=== PATIENT | female | born 1965 | race Caucasian/White ===

== ENCOUNTER 2016-11-01 06:26 | Emergency (ER) | payer OTHER ==
--- NOTE | 2016-11-01 10:44 | ED ORDER SUMMARY ---
..... Patient: MELODIE WYATT OrderSheet [facility] VisitID: [id number] [place] [address] 51y, F Registration Date/Time: 11/01/2016 ORDER SHEET Weight: 68.0 kg (stated) Allergies: morphine, Sertraline GENERAL ORDERS: CBC w Diff Urgent (07:07 11/01/2016 DDavis R.N. verbal order read back to Suha OSUNA) (Ack 7:10 CHagerty ER Baccarat Manager) (7:24 DMaziarka R.N.) CMP Urgent (07:07 11/01/2016 DDavis R.N. verbal order read back to Suha OSUNA) (Ack 7:10 CHagerty ER Baccarat Manager) (7:24 DMaziarka R.N.) UA-Culture if indicated Urgent (07:07 11/01/2016 DDavis R.N. verbal order read back to Suha OSUNA) (Ack 7:10 CHag[place] ER Baccarat Manager) (8:24 TBergley) Urine Drug Screen Urgent (07:07 11/01/2016 DDavis R.N. verbal order read back to Suha OSUNA) (Ack 7:10 CH[place] ER Baccarat Manager) (8:24 TBergley) Amylase Urgent (07:07 11/01/2016 DDavis R.N. verbal order read back to Suha OSUNA) (Ack 7:10 CHagerty ER Baccarat Manager) (7:24 DMaziarka R.N.) Lipase Urgent (07:07 11/01/2016 DDavis R.N. verbal order read back to Suha OSUNA) (Ack 7:10 CHagerty ER Baccarat Manager) (7:24 DMaziarka R.N.) Form Stripper (Continuous) (08:39 11/01/2016 Suha OSUNA) (Ack 8:56 LNations ER Tech1) (8:57 DMaziarka R.N.) CPK Urgent (08:39 11/01/2016 Suha OSUNA) (Ack 8:56 LNations ER Tech1) (8:57 DMaziarka R.N.) Troponin-I Urgent (08:39 11/01/2016 Suha OSUNA) (Ack 8:56 LNations ER Tech1) (8:57 DMaziarka R.N.) Pulse oximeter (08:39 11/01/2016 Suha OSUNA) (Ack 8:56 LNations ER Tech1) (8:57 DMaziarka R.N.) EKG - ER Stat (08:39 11/01/2016 Suha OSUNA) (Ack 8:56 LNations ER Tech1) (8:57 DMaziarka R.N.) Lactate, Serum Urgent (08:40 11/01/2016 Suha OSUNA) (Ack 8:56 LNations ER Tech1) (8:57 DMaziarka R.N.) US Abdomen Limited (No) Urgent (08:58 11/01/2016 Suha OSUNA) (Ack 9:01 LNations ER Tech1) (9:12 LNations ER Tech1) MEDICATION ORDERS: IV FLUIDS: IV Saline Lock (07:07 11/01/2016 Eusebio R.NKerry verbal order read back to Suha OSUNA) (7:27 DMaziarka R.N.) IV NS : initial bolus 500 mL (1000 mL/hr), then 125 mL/hr for 4h (NOW); Urgent (07:38 11/01/2016 Suha OSUNA) (Ack 7:45 DMaziarka R.N.) (7:48 DMaziarka R.N.) ORDER SHEET NOTES: [Electronically signed by Margarette Torres R.N. (11:22 11/01/2016)] [Electronically signed by Melodie Canas MD (21:21 11/08/2016)] [Electronically locked/signed by Margarette Torres R.N. (11:22 11/01/2016)]
--- NOTE | 2016-11-01 10:44 | ED CLINICAL REPORT ---
Clinical Report - Physicians/Mid Levels [facility] [address] [place] [address] 11/01/2016 6:27 Patient: MELODIE WYATT Time Seen: 06:42. Arrived- By private vehicle. Historian- patient. HISTORY OF PRESENT ILLNESS Chief Complaint: "Pain". At its maximum, severity described as moderate. When seen in the E.D., it was gone. Modifying factors. Not worsened by anything. Not relieved by anything. This started today and is now gone. It was abrupt in onset. No current or associated symptoms. (patient reports that she injected heroin into her arm. She subsequently developed pain "all over my body." Pt had also recently done methamphetamines. She says that the sx are now resolved.). Similar symptoms previously: None. Recent medical care: Not recently seen/assessed. REVIEW OF SYSTEMS No chills, fever, decreased vision, nasal congestion or runny nose. No calf pain, chest pain, cough, difficulty breathing or pedal edema. No palpitations, abdominal pain, constipation, diarrhea or nausea. No vomiting, urinary problems, laceration, skin rash or alteration in mental status. No dizziness, fainting episodes, headache, weakness or difficulty with urination. The patient has no pain on weight bearing. No difficulty walking. All systems otherwise negative, except as recorded above. PAST HISTORY Problems: Substance Abuse. Syncope. Heart Disease. Narcotic Withdrawal. Diarrhea. Vomiting. Back Pain. Breast Cancer. Abdominal Pain. Lifestyle / Substance Problems. Bronchitis. Dental Caries. Hypertension. Rectal problem for several years. Dental Pain. Cardiomegaly. Congestive Heart Failure. Additional Surgeries: Ankle surgery. Breast Biopsy. Colonoscopy. Rectum surgery. Stimulator in back. Tubal Ligation. Medications: Methadone HCl Oral. Allergies: morphine. Sertraline. SOCIAL HISTORY Current every day heavy tobacco smoker (cigarette)- less than 1 pack per day. History of drug use: heroin, methamphetamines. Recently used drugs just prior to arrival. No alcohol use. FAMILY HISTORY Denies family medical history. ADDITIONAL NOTES The nursing notes have been reviewed. PHYSICAL EXAM Vital Signs: 11/01/2016 06:30 BP: 106/62. HR: 97. RR: 28. O2 saturation: 97%. Temp: 99.5 F. Pain level now: 02/11. Have been reviewed. Appearance: Alert. Eyes: Pupils equal, round and reactive to light. ENT: Pharynx normal. Neck: Normal inspection. Neck supple. CVS: Normal heart rate and rhythm. Heart sounds normal. No extra heart sounds. Respiratory: No respiratory distress. 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 The tenderness reproduces the patient's subjective complaint. Breath sounds normal. Abdomen: No visible injury. Soft. Mild tenderness in the upper abdomen. Bowel sounds normal. No organomegaly. No mass. Back: Normal inspection. Skin: Skin warm and dry. Extremities: Extremities exhibit normal ROM. No calf tenderness. No lower extremity edema. Neuro: (Grossly oriented and intact.). LABS, X-RAYS, AND EKG EKG: EKG time: (0858). No acute ischemia. Rate: 114. Tachycardia. Normal P waves. Normal JV. Normal QRS complex. Left axis deviation. Normal QT and QTc. Non-specific ST segment / T wave abnormalities. Changes present when compared to prior EKG. (24 Apr 2015). The study has been interpreted contemporaneously by me. The study has been independently viewed by me. The EKG appears to be a good tracing. I agree with and confirm the computer reading of the EKG. Abdominal Sonogram: Normal study. The gallbladder is normal. Common duct is normal. Normal liver. Pancreas normal. Aorta normal. Kidney normal. Spleen normal. No free fluid. Study included the upper abdomen. Prior studies were not available for comparison. The study was interpreted by the radiologist and discussed with the radiologist. Laboratory Tests: UA-Culture if indicated: (JEFFERSON: 11/01/2016 08:23) ( MsgRcvd 11/01/2016 08:53) Final results Test Result Flag Units (Reference) URINE COLOR YELLOW URINE APPEARANCE SL CLOUDY URINE GLUCOSE NEGATIVE (NEGATIVE) URINE BILIRUBIN ICTOTEST POSITIVE (NEGATIVE) URINE KETONE NEGATIVE (NEGATIVE) URINE SPECIFIC GRAVITY 1.010 (1.010-1.030) URINE PH 7.0 (5.0-8.0) URINE PROTEIN 1+ (NEGATIVE) URINE UROBILINOGEN >=8.0 EU/dL (0.2-1.0) URINE NITRITE NEGATIVE (NEGATIVE) URINE BLOOD 3+ (NEGATIVE) URINE LEUK ESTERASE NEGATIVE (NEGATIVE) URINE RBC 10-25 rbc/hpf (0-1) URINE WBC 3-5 wbc/hpf (0-1) URINE EPITHELIAL CELLS 3-5 EPI/hpf (0-5) URINE BACTERIA FEW (1+) (NONE SEEN) URINE COMMENT CULT NOT INDICATED URINE CULTURES ARE SET-UP BASED ON THE FOLLOWING CRITERIA:POSITIVE NITRITEPOSITIVE LEUKOCYTE ESTERASEGREATER THAN 10 WHITE BLOOD CELLSMODERATE (2+) OR GREATER BACTERIA CBC w Diff: (JEFFERSON: 11/01/2016 07:25) ( MsgRcvd 11/01/2016 07:51) Final results Test Result Flag Units (Reference) WHITE BLOOD COUNT 3.1 L K/uL (4.5-11.5) RED BLOOD COUNT 5.20 M/uL (4.00-5.20) HEMOGLOBIN 15.6 gm/dL (12.0-16.0) HEMATOCRIT 45.9 % (36.0-46.0) MEAN CELL VOLUME 88 fL (80-100) MEAN CORPUSCULAR HGB 30 pg (26-34) MEAN CORPUSCULAR HGB CONC 34 g/dL (31-37) RED CELL DISTRIBUTION WIDTH 13.3 % (11.6-14.8) PLATELET COUNT 127 L K/uL (150-400) NEUTROPHIL % 92.2 H % (50-75) LYMPH % 7.0 L % (25-40) MONO % 0.4 L % (3-14) EOSINOPHIL % 0.3 % (0-4) BASOPHIL % 0.1 % (0-2) Urine Drug Screen: (JEFFERSON: 11/01/2016 08:23) ( MsgRcvd 11/01/2016 08:52) Final results Test Result Flag Units (Reference) AMPHETAMINE/METHAMPHETAMINE POSITIVE H (NEGATIVE) BARBITURATE NEGATIVE (NEGATIVE) BENZODIAZEPINE NEGATIVE (NEGATIVE) CANNABINOID NEGATIVE (NEGATIVE) COCAINE NEGATIVE (NEGATIVE) ECSTASY NEGATIVE (NEGATIVE) METHADONE POSITIVE H (NEGATIVE) OPIATE POSITIVE H (NEGATIVE) The urine drug screen is a qualitative screening test fordrug overdose and abuse. All screen results should beconsidered as presumptive.Drugs screened for are as follows:BenzodiazepinesCocaineAmphetamines/MetamphetaminesTHC (Tetrahydrocannabinol)OpiatesBarbituratesEcstasyMethadonePositive results are unconfirmed. For confirmation, notifythe lab for the specimen to be sent to the reference lab.All confirmations must be performed by a differentmethodology.The ingestion of natural herbal and plant productscontaining Ephedra/Ephedra metabolites can produce in urineone or more substances capable of cross reacting withamphetamine/methamphetamine immunoassays. These testsprovide a preliminary result only. A more specificalternative chemical method must be used to obtain aconfirmed analytical result. CMP: (JEFFERSON: 11/01/2016 07:25) ( MsgRcvd 11/01/2016 08:45) IP Test Result Flag Units (Reference) GLUCOSE 110 mg/dL (70-110) BUN 13 mg/dL (7-18) CREATININE 0.9 mg/dL (0.6-1.3) Estimated GFR >60 mL/min Estimated GFR- >60 mL/min Note: Persistent reduction over 3 months in eGFR<60 mL/min/1.73 m2 defines CKD. Patients with eGFR values>=60 mL/min/1.73 m2 may also have CKD if evidence ofpersistent proteinuria. Additional information may be foundat www.kidney.org. SODIUM 129 L mmol/L (136-145) POTASSIUM 3.0 L mmol/L (3.5-5.1) CHLORIDE 103 mmol/L (98-107) CARBON DIOXIDE 25 mmol/L (21-32) CALCIUM 8.2 L mg/dL (8.5-10.1) TOTAL PROTEIN 6.2 L g/dL (6.4-8.2) ALBUMIN 2.8 L g/dL (3.3-5.0) BILIRUBIN, TOTAL 2.4 H mg/dL (0.0-1.0) LIPASE 45 L U/L (73-393) AMYLASE 22 L U/L (25-115) . Pulse Oximetry: 11/01/2016 06:30 O2 saturation: 97%. (FIO2 - room air). Interpretation: normal. PROGRESS AND PROCEDURES Course of Care: 09:16 11/01/16. I discussed the case with Dr. Canas at change of shift. We reviewed the patient's history and physical examination findings and the results of her labs thus far. Dr. Canas will follow-up on the results of her pending labs as well as the results of her ultrasound and she will arrange an appropriate disposition for the patient. - MW Pt was signed out to me at change of shift, pending work-up and observation. Pt was asymptomatic on arrival, as well as throughout her stay in the ED. She had no further complaints. Work-up was negative. No emergent condition identified. Patient/family counseled. Old medical records ordered. Disposition: Discharged. Condition: stable and improved. CLINICAL IMPRESSION Substance abuse problems: abuse of opiates and methamphetamine. Substance dependence problems: dependence on opiates and methamphetamine. INSTRUCTIONS (Your labs showed that your liver has endured some stress. However most of this is likely chronic. No infection or other serious, acute problems has been found today. Please get help with your drug use.). Warnings: GENERAL WARNINGS: Return or contact your physician immediately if your condition worsens or changes unexpectedly, if not improving as expected, or if other problems arise. Your Current Medications: CONTINUE TAKING THE FOLLOWING MEDICATIONS: Methadone HCl Oral. Understanding of the discharge instructions verbalized by patient. Follow-up with: [facility], , , [address], [facility], [address] Follow up. Call for the next available appointment. Reason for referral: Establish care. (Electronically signed by Melodie Canas MD 11/08/2016 21:21)
--- NOTE | 2016-11-01 10:44 | ED ORDER SUMMARY ---
..... Patient: MELODIE WYATT OrderSheet [facility] VisitID: [id number] [place] [address] 51y, F Registration Date/Time: 11/01/2016 ORDER SHEET Weight: 68.0 kg (stated) Allergies: morphine, Sertraline GENERAL ORDERS: CBC w Diff Urgent (07:07 11/01/2016 DDavis R.N. verbal order read back to Suha OSUNA) (Ack 7:10 CHagerty ER Drug Enforcement Administration Agent) (7:24 DMaziarka R.N.) CMP Urgent (07:07 11/01/2016 DDavis R.N. verbal order read back to Suha OSUNA) (Ack 7:10 CHagerty ER Drug Enforcement Administration Agent) (7:24 DMaziarka R.N.) UA-Culture if indicated Urgent (07:07 11/01/2016 DDavis R.N. verbal order read back to Suha OSUNA) (Ack 7:10 CH[place] ER Drug Enforcement Administration Agent) (8:24 TBergley) Urine Drug Screen Urgent (07:07 11/01/2016 DDavis R.N. verbal order read back to Suha OSUNA) (Ack 7:10 CH[place] ER Drug Enforcement Administration Agent) (8:24 TBergley) Amylase Urgent (07:07 11/01/2016 DDavis R.N. verbal order read back to Suha OSUNA) (Ack 7:10 CHagerty ER Drug Enforcement Administration Agent) (7:24 DMaziarka R.N.) Lipase Urgent (07:07 11/01/2016 DDavis R.N. verbal order read back to Suha OSUNA) (Ack 7:10 CHagerty ER Drug Enforcement Administration Agent) (7:24 DMaziarka R.N.) Heel Cementer Machine (Continuous) (08:39 11/01/2016 Suha OSUNA) (Ack 8:56 LNations ER Tech1) (8:57 DMaziarka R.N.) CPK Urgent (08:39 11/01/2016 Suha OSUNA) (Ack 8:56 LNations ER Tech1) (8:57 DMaziarka R.N.) Troponin-I Urgent (08:39 11/01/2016 Suha OSUNA) (Ack 8:56 LNations ER Tech1) (8:57 DMaziarka R.N.) Pulse oximeter (08:39 11/01/2016 Suha OSUNA) (Ack 8:56 LNations ER Tech1) (8:57 DMaziarka R.N.) EKG - ER Stat (08:39 11/01/2016 Suha OSUNA) (Ack 8:56 LNations ER Tech1) (8:57 DMaziarka R.N.) Lactate, Serum Urgent (08:40 11/01/2016 Suha OSUNA) (Ack 8:56 LNations ER Tech1) (8:57 DMaziarka R.N.) US Abdomen Limited (No) Urgent (08:58 11/01/2016 Suha OSUNA) (Ack 9:01 LNations ER Tech1) (9:12 LNations ER Tech1) MEDICATION ORDERS: IV FLUIDS: IV Saline Lock (07:07 11/01/2016 Eusebio R.NKerry verbal order read back to Suha OSUNA) (7:27 DMaziarka R.N.) IV NS : initial bolus 500 mL (1000 mL/hr), then 125 mL/hr for 4h (NOW); Urgent (07:38 11/01/2016 Suha OSUNA) (Ack 7:45 DMaziarka R.N.) (7:48 DMaziarka R.N.) ORDER SHEET NOTES: [Electronically signed by Margarette Torres R.N. (11:22 11/01/2016)] [Electronically signed by Melodie Canas MD (21:21 11/08/2016)] [Electronically locked/signed by Margarette Torres R.N. (11:22 11/01/2016)]
--- NOTE | 2016-11-01 10:44 | ED NURSING NOTES ---
Clinical Report - Nurses [facility] [address] [place] [address] 11/01/2016 6:27 Patient: MIKE WYATT TRIAGE Triage time 06:31. Acuity: LEVEL 3. Chief Complaint: ("pain all over"). MICHELLE COMA SCORE: [place] Coma Scale: 15- eyes open spontaneously (4); best verbal response- oriented x 4 (5); best motor response- obeys commands (6). --06:37 Alejandro Auguste R.N. 06:30 11/01/16. BP: 106/62 taken on the left arm, while lying. HR: 97. RR: 28 (rapid and shallow). O2 saturation: 97% on room air. Temp: 99.5 F (oral). Pain level now: 02/11. --06:37 Alejandro Auguste R.N. Acuity: LEVEL 3. --06:40 Alejandro Auguste R.N. Weight: 68 kg stated. Height/Length: 63 inches Per Patient. BMI: 26.6. --06:29 Alejandro Auguste R.N. Medications Methadone HCl Oral. --06:36 Alejandro Auguste R.N. Allergies morphine. Sertraline. --06:35 Alejandro Auguste R.N. History Arrived by EMS, and unaccompanied. This started just prior to arrival. ( Patient states that she" shot up" "heroine and meth" in her right arm "30 minutes ago" and started having abdominal cramps and "pain all over"). SOCIAL HX: Heavy tobacco smoker (cigarette)- less than 1 pack per day. History of heavy IV drug use: heroin, methamphetamines, marijuana. No alcohol use. ( pt states that she goes to a methadone clinic). --06:37 Alejandro Auguste R.N. PROBLEMS: Substance Abuse. Heart Disease. Narcotic Withdrawal. Back Pain. Breast Cancer. Lifestyle / Substance Problems. Dental Caries. Hypertension. Rectal problem for several years. Cardiomegaly. Congestive Heart Failure. --06:35 Alejandro Auguste R.N. ADDITIONAL SURGERIES: Ankle surgery. Breast Biopsy. Colonoscopy. Rectum surgery. Stimulator in back. Tubal Ligation. --06:36 Alejandro Auguste R.N. Interventions ID band on patient. To treatment room. --06:37 Alejandro Auguste R.N. PHYSICAL ASSESSMENT To room via stretcher. ( Patient appears sleepy, answers questions appropriately and opens eyes spontaneously.). GENERAL / NEURO / PSYCH: Alert. Oriented X 4. Does not appear in pain or anxious. HEENT: Mucous membranes are pink. RESPIRATORY: No respiratory distress. Respirations not labored. Breath sounds within normal limits. CVS: Cardiac rhythm: sinus tachycardia. No abnormal heart sounds. ( rate=96 to 105). Capillary refill less than 2 seconds. GI / : Normal bowel sounds. Abdominal tenderness diffusely. SKIN: Skin is warm and dry. Normal skin turgor. ( track bruno on arms). --06:40 Alejandro Auguste R.N. NURSING PROGRESS NOTES utilization management rn, pulse oximeter and NIBP monitor placed on patient. Patient gowned. Two patient identifiers checked. Call light placed in reach. Side rails up x 2. Brakes of bed on. Patient ready for evaluation- chart flagged and ED physician notified. Patient waiting for evaluation. --06:40 Alejandro Auguste R.N. ( Dr Reyes notified of patient and orders received. Report given to Margarette Álvarez RN). --07:12 Alejandro Auguste R.N. 07:27 11/01/2016 Site #1 started via IV in the left hand with an 18g angiocath, with aseptic technique and good blood return; one attempt. Blood drawn: rainbow set. Labeled in the presence of the patient and sent to the lab. Saline lock flushed with 10 mL saline. --07:27 Margarette Torres R.N. 07:27 11/01/16. BP: 110/67. HR: 127. RR: 30. O2 saturation: 98%. --07:28 Margarette Torres R.N. Blood samples drawn. Call light placed in reach. Side rails up x 2. --07:28 Margarette Torres R.N. 07:48 11/01/2016 Started bag #1 1000 mL IV Fluids IV NS (Saline); bolus of 500 mL over 30 minute(s) then at 125 mL/hr over 4 hour(s) via site #1 via IV pump. Allergies verified and confirmed 5 rights. IV patency established. IV site checked: no pain, redness, or swelling. IV flushed thoroughly pre- and post-medication administration. --07:48 Margarette Torres R.N. 08:58 11/01/16. EKG time: (0858 AM). EKG was ordered, performed by a tech and shown to the ED physician. --08:58 Lucinda Burns 08:45. Team Primary Care Physician provided for the general exam by the physician. --09:12 Jaycee Armstrong R.N. 09:45 11/01/16. BP: 97/71. HR: 110. RR: 28. O2 saturation: 98%. Pain level now 0/10. --09:45 Margarette Torres R.N. Patient transported to radiology. --09:46 Margarette Torres R.N. The patient is sleeping. Overall patient status is improved. RESPIRATORY: No respiratory distress. --10:41 Margarette Torres R.N. 11:11 11/01/2016 Site #1 removed upon discharge. Bandaid applied. --11:11 Margarette Torres R.N. DISPOSITION / DISCHARGE Condition at departure: improved. No learning barriers present. Patient verbalized understanding. Written instructions provided in Divehi. The patient was discharged home and accompanied by family. She left the Emergency Department ambulatory and via private vehicle. Spouse driving. ( Pt AOx3 NAD up ambulating to the BR with asst ant well not light headed. B/P 89/67 MD aware pt is tolerating well after having taken Heroin). --11:11 Margarette Torres R.N. 10:58 11/01/16. BP: 89/68. HR: 86. RR: 20. O2 saturation: 100%. Pain level now 0/10. --11:11 Margarette Torres R.N. Departure time: 11:11. --11:12 Margarette Torres R.N. Locked/Released at 11/01/2016 11:22 by Margarette Torres R.N.
--- NOTE | 2016-11-01 10:59 | DIAGNOSTIC IMAGING REPORT ---
PROCEDURE: US ABDOMEN ULTRASOUND-LIMITED INDICATION: PAIN TECHNIQUE: Carmona scale and color Doppler sonographic images of the abdomen were obtained without comparison. COMPARISON: Abdominal ultra sound 04/06/2014 FINDINGS: The liver is mildly enlarged and demonstrates increased echogenicity. No mass or intrahepatic biliary dilatation. The gallbladder is contracted. The wall is normal thickness measuring 3.7 mm No pericholecystic fluid or Park sign. The extrahepatic common duct is normal measuring 3.1 mm The visualized pancreas is echogenic and mildly enlarged. The abdominal aorta is normal in its course and caliber. The retrohepatic inferior vena cava is patent. There is appropriate hepatopetal flow in the portal vein. The right kidney measures 10.4 cm in length. There is no perihepatic or perisplenic ascites. IMPRESSION: 1. Enlarged fatty liver. 2. Mildly enlarged echogenic pancreas.
--- NOTE | 2016-11-08 21:21 | ED MAR SUMMARY ---
..... Medication Administration Record [facility] [address] [place] [address] Patient: MIKE WYATT Visit ID: [id number] 51y, F Weight: 68.0 kg Height/Length: 63 in BMI: 26.6 ALLERGIES: morphine, Sertraline Start 07:48 11/01/2016 Margarette Torres RAnnetta Medication Administered: IV NS (SALINE), Dose: IV Fluids over 4 hour(s), Rate: 125 mL/hr, Bolus: 500 mL over 30 minute(s), Dispensed: 1000 mL bag, Site: #1 left hand. Medication Ordered: IV NS : initial bolus 500 mL (1000 mL/hr), then 125 mL/hr for 4h (NOW); Urgent.
--- NOTE | 2016-11-08 21:21 | ED MED RECONCILIATION SUMMARY ---
Patient: MIKE WYATT Medication Reconciliation Report [facility] VisitID: [id number] [address] [place] [address] 51y, F Registration Date/Time: 11/01/2016 Weight: 68.0 kg Height/Length: 63 in. BMI: 26.6 ALLERGIES: morphine, Sertraline The patient's Home Medications are listed below: CONTINUE TAKING THE FOLLOWING MEDICATIONS: Methadone HCl Oral The source(s) of the original Home Medication information: Not obtained. The following Medications were given to the patient in the Emergency Department: IV NS IV Fluids bolus 500 mL over 30 minute(s), then 125 mL/hr, administered: 11/01/2016 7:48:00 AM The following Medications were prescribed to the patient: None.
--- NOTE | 2016-11-08 21:21 | ED MED RECONCILIATION SUMMARY ---
Patient: MIKE WYATT Medication Reconciliation Report [facility] VisitID: [id number] [address] [place] [address] 51y, F Registration Date/Time: 11/01/2016 Weight: 68.0 kg Height/Length: 63 in. BMI: 26.6 ALLERGIES: morphine, Sertraline The patient's Home Medications are listed below: CONTINUE TAKING THE FOLLOWING MEDICATIONS: Methadone HCl Oral The source(s) of the original Home Medication information: Not obtained. The following Medications were given to the patient in the Emergency Department: IV NS IV Fluids bolus 500 mL over 30 minute(s), then 125 mL/hr, administered: 11/01/2016 7:48:00 AM The following Medications were prescribed to the patient: None.
--- NOTE | 2016-11-08 21:21 | ED DISCHARGE INSTRUCTIONS ---
Patient: MELODIE WYATT Harini General Instructions [facility] VisitID: [id number] [address], [place] [address] 51y, F Registration Date/Time: 11/01/2016 Substance abuse problems: abuse of opiates and methamphetamine. Substance dependence problems: dependence on opiates and methamphetamine. INSTRUCTIONS (Your labs showed that your liver has endured some stress. However most of this is likely chronic. No infection or other serious, acute problems has been found today. Please get help with your drug use.). Warnings: GENERAL WARNINGS: Return or contact your physician immediately if your condition worsens or changes unexpectedly, if not improving as expected, or if other problems arise. Your Current Medications: CONTINUE TAKING THE FOLLOWING MEDICATIONS: Methadone HCl Oral. Understanding of the discharge instructions verbalized by patient. Follow-up with: [facility], , , [address], , [place], [address] Follow up. Call for the next available appointment. Reason for referral: Establish care. (Electronically signed by Melodie Cnaas MD 11/08/2016 21:21)
--- NOTE | 2016-11-08 21:21 | ED DISCHARGE INSTRUCTIONS ---
Patient: MELODIE WYATT Harini General Instructions [facility] VisitID: [id number] [address], [place] [address] 51y, F Registration Date/Time: 11/01/2016 Substance abuse problems: abuse of opiates and methamphetamine. Substance dependence problems: dependence on opiates and methamphetamine. INSTRUCTIONS (Your labs showed that your liver has endured some stress. However most of this is likely chronic. No infection or other serious, acute problems has been found today. Please get help with your drug use.). Warnings: GENERAL WARNINGS: Return or contact your physician immediately if your condition worsens or changes unexpectedly, if not improving as expected, or if other problems arise. Your Current Medications: CONTINUE TAKING THE FOLLOWING MEDICATIONS: Methadone HCl Oral. Understanding of the discharge instructions verbalized by patient. Follow-up with: [facility], , , [address], , [place], [address] Follow up. Call for the next available appointment. Reason for referral: Establish care. (Electronically signed by Melodie Canas MD 11/08/2016 21:21)
--- NOTE | 2016-11-08 21:21 | ED MAR SUMMARY ---
..... Medication Administration Record [facility] [address] [place] [address] Patient: MIKE WYATT Visit ID: [id number] 51y, F Weight: 68.0 kg Height/Length: 63 in BMI: 26.6 ALLERGIES: morphine, Sertraline Start 07:48 11/01/2016 Margarette Torres RAnnetta Medication Administered: IV NS (SALINE), Dose: IV Fluids over 4 hour(s), Rate: 125 mL/hr, Bolus: 500 mL over 30 minute(s), Dispensed: 1000 mL bag, Site: #1 left hand. Medication Ordered: IV NS : initial bolus 500 mL (1000 mL/hr), then 125 mL/hr for 4h (NOW); Urgent.
== END 2016-11-01 11:18 | disposition home or self-care (01) ==
LOC: ED SRH 06:26
DX: F11.10 Opioid abuse, uncomplicated (principal); F15.10 Other stimulant abuse, uncomplicated; Z88.8 Allergy status to other drugs, medicaments and biological substances; F17.210 Nicotine dependence, cigarettes, uncomplicated; I10 Essential (primary) hypertension
CPT/HCPCS: 90004; 90100; 90616; 92235; 92530; 92610; 92760; 92761; 92762; 92763; 92764; 92765; 92766; 92767; 95059